=== PATIENT | male | born 1965 | race Caucasian/White ===

== ENCOUNTER 2019-01-15 15:26 | Emergency (ER) | payer OTHER ==
[2019-01-15 15:39] VITALS: BP 196/84
--- NOTE | 2019-01-15 16:50 | ED Physician Documentation ---
PD HPI ANIMAL BITE - Stated complaint Stated Complaint: RABIES VAC/POST EXPOSURE - Chief complaint Chief Complaint: General - History obtained from History obtained from: Patient - History of Present Illness Details of the event: Other ( Abrupt onset (he and awoke to a bat flying in their bedroom. He swatted at it and it rubbed his arm. It was on floor a moment and then it got up and flew out door they opened. No noted bite. They looked it up on internet and then talked with [facility] who urged them to come to ER for discussion about rabies, but would not directly "recommend" vaccine or not, but would be up to ER provider. The HD called them 3 times to see if they had gone in to ER yet.)). No: Bite, Scratch Timing - onset: Yesterday Timing - details: Abrupt onset Review of Systems Constitutional: denies: Fever Nose: denies: Rhinorrhea / runny nose, Congestion Throat: denies: Sore throat Respiratory: denies: Cough Neurologic: denies: Focal weakness, Numbness, Headache PD PAST MEDICAL HISTORY - Past Medical History Past Medical History: No - Present Medications Home Medications: Ambulatory Orders Medication Instructions Recorded Confirmed Rabies Vaccine [Rabavert] 2.5 unit IM ONCE #3 syringe 01/15/19 - Allergies Allergies/Adverse Reactions: Allergies Allergy/AdvReac Type Severity Reaction Status Date / Time No Known Drug Allergies Allergy Verified 01/15/19 15:38 PD ED PE NORMAL - Vitals Vital signs reviewed: Yes - General General: Alert and oriented X 3, No acute distress, Well developed/nourished - Neck Neck: Supple, no meningeal sign, No adenopathy - Derm Derm: Normal color, Warm and dry, No rash - Neuro Neuro: Alert and oriented X 3, No motor deficit, Normal speech Results - Vitals Vitals: Oxygen O2 Source Room air PD MEDICAL DECISION MAKING - ED course Complexity details: considered differential (considered differential (discussed the issue with patient and his . Shared decision to go along with [facility] Dept "recommendation" for vaccination. )), d/w patient Departure - Departure Disposition: 01 Home, Self Care Clinical Impression: Exposure to bat without known bite Condition: Stable Record reviewed to determine appropriate education?: Yes Prescriptions: Rabies Vaccine [Rabavert] 2.5 unit IM ONCE #3 syringe Comments: He will need repeat rabies vaccine doses on the and 16th. These can be through a urgent care or walk-in if you bring your medicines to them. Otherwise return to the ER for repeat dosing. Discharge Date/Time: 01/15/19 18:55
[2019-01-15] MEDS ORDERED: RABIES VACCINE 2.5 UNIT SYRINGE IM ONE (17:29)
[2019-01-15] MEDS ORDERED: RABIES IMMUNE GLOBULIN 300 UNITS/2 ML IM STA ×2 (17:29→17:54)
== END 2019-01-15 18:55 | disposition home or self-care (01) ==
LOC: ED 15:26
DX: Z29.14 Encounter for prophylactic rabies immune globulin (principal); Z20.3 Contact with and (suspected) exposure to rabies
CPT/HCPCS: 90471; 96372; 99282

== ENCOUNTER 2019-01-18 13:55 | Emergency (ER) | payer OTHER ==
[2019-01-18 14:01] VITALS: BP 179/91
[2019-01-18] MEDS ORDERED: RABIES VACCINE 2.5 UNIT SYRINGE IM ONE (14:09)
--- NOTE | 2019-01-18 14:13 | ED Physician Documentation ---
History of Present Illness - Stated complaint Stated Complaint: RABIES TREATMENT - Chief complaint Chief Complaint: General - History obtained from History obtained from: Patient - History of Present Illness Pain level max: 0 Pain level now: 0 - Additonal information Additional information: Here for rabies vaccination. No complaints Review of Systems Constitutional: denies: Fever GI: denies: Vomiting Skin: denies: Rash PD PAST MEDICAL HISTORY - Past Medical History Past Medical History: No - Past Surgical History Past Surgical History: No - Present Medications Home Medications: Ambulatory Orders Medication Instructions Recorded Confirmed Rabies Vaccine [Rabavert] 2.5 unit IM ONCE #3 syringe 01/15/19 - Allergies Allergies/Adverse Reactions: Allergies Allergy/AdvReac Type Severity Reaction Status Date / Time No Known Drug Allergies Allergy Verified 01/18/19 14:01 - Social History Does the pt smoke?: No Smoking Status: Never smoker Does the pt drink ETOH?: No Does the pt have substance abuse?: No - Immunizations Immunizations are current?: Yes - POLST Patient has POLST: No PD ED PE NORMAL - Vitals Vital signs reviewed: Yes - General General: Alert and oriented X 3, No acute distress - HEENT HEENT: Moist mucous membranes - Neck Neck: Supple, no meningeal sign - Cardiac Cardiac: RRR - Respiratory Respiratory: No respiratory distress, Clear bilaterally - Derm Derm: Warm and dry - Neuro Neuro: Alert and oriented X 3 Results - Vitals Vitals: Oxygen O2 Source Room air PD MEDICAL DECISION MAKING - ED course Complexity details: considered differential, d/w patient ED course: Rabies vaccination given. No complaints. Departure - Departure Disposition: Home, Self Care Clinical Impression: Exposure to bat without known bite Condition: Good Follow-Up: your,doctor [Other] Comments: Your next rabies vaccination should be on January 22, The final vaccination will be on January 29. Discharge Date/Time: 01/18/19 14:31
== END 2019-01-18 14:31 | disposition home or self-care (01) ==
LOC: ED 13:55
DX: Z23 Encounter for immunization (principal); Z20.3 Contact with and (suspected) exposure to rabies
CPT/HCPCS: 90471; 99282